=== PATIENT | male | born 1980 | race Caucasian/White ===

== ENCOUNTER 2018-11-05 18:33 | Emergency (ER) | payer OTHER ==
[~2018-11-05] VITALS: Ht 180.3 cm; Wt 104.8 kg
[2018-11-05 18:50] VITALS: BP 147/105
--- NOTE | 2018-11-05 19:37 | NUR ---
PT TO ER BED 5
--- NOTE | 2018-11-05 19:42 | NUR ---
PT PRESENTS TO ED WITH C/O BILATERAL KNEE PAIN. DENIES INJURY OR TRAUMA. NO OBVIOUS DEFORMITY NOTED. PT IS AMBULATORY W OUT ASSIST. PT PLACED INTO BED, PENDING MD SUAREZ.
[2018-11-05] MEDS ORDERED: KETOROLAC 30 MG/ML VIAL IM ONE (20:50)
[2018-11-05] MEDS ORDERED: HYDROcodone/APAP 5/325 MG 1 TAB TAB PO ONE (20:50)
--- NOTE | 2018-11-05 20:55 | NUR ---
RAD AT BEDSIDE
[2018-11-05 21:27] VITALS: BP 144/87
--- NOTE | 2018-11-05 21:27 | NUR ---
Patient discharged with v/s stable. Written and verbal after care instructions given and explained. Patient alert, oriented and verbalized understanding of instructions. Ambulatory with steady gait. All questions addressed prior to discharge. ID band removed. Patient advised to follow up with PMD. Rx of NORCO, KNEE BRACE X 2 given. Patient educated on indication of medication including possible reaction and side effects. Opportunity to ask questions provided and answered.
== END 2018-11-05 21:27 | disposition home or self-care (01) ==
LOC: MED 18:33
DX: M76.9 Unspecified enthesopathy, lower limb, excluding foot (principal); E78.00 Pure hypercholesterolemia, unspecified; Z89.112 Acquired absence of left hand; Z98.890 Other specified postprocedural states
CPT/HCPCS: 73560; 96372; 99283; J1885; Q0092

== ENCOUNTER 2018-11-26 16:30 | Emergency (ER) | payer OTHER ==
[~2018-11-26] VITALS: Ht 180.3 cm; Wt 104.3 kg
[2018-11-26 16:37] VITALS: BP 153/104
[2018-11-26 16:50] VITALS: BP 153/104
--- NOTE | 2018-11-26 16:52 | NUR ---
BIB SELF COUGH X 2 DAYS WITH WHEEZING SOUNDS, RHINORRHEA, AND SNEEZING. + NAUSEA, -V/D. SKIN IS PINK/WARM/DRY; AAOX4 WITH EVEN AND STEADY GAIT; LUNGS SOUNDS COARSE BL; HR EVEN AND REGULAR; PT DENIES ANY FEVER, CP, SOB AT THIS TIME; PATIENT STATES THROAT PAIN OF 4/10 AT THIS TIME; VSS; PATIENT POSITIONED FOR COMFORT; HOB ELEVATED; BEDRAILS UP X2; BED DOWN. ER MD MADE AWARE OF PT STATUS.
[2018-11-26] MEDS ORDERED: ALBUTEROL SULFATE/IPRATROPIU 3 ML SOL IH ONE (16:55)
--- NOTE | 2018-11-26 17:07 | NUR ---
RT AT BEDSIDE.
--- NOTE | 2018-11-26 17:50 | NUR ---
PATIENT STATES HE IS FEELING MUCH BETTER NOW AFTER THE BREATHING TREATMENT.
--- NOTE | 2018-11-26 18:52 | NUR ---
Patient discharged with v/s stable. Written and verbal after care instructions given and explained. Patient alert, oriented and verbalized understanding of instructions. Ambulatory with steady gait. All questions addressed prior to discharge. ID band removed. Patient advised to follow up with PMD. Rx of prednison, albuterol and codeine phosphate/promethazine hydrocloride given. Patient educated on indication of medication including possible reaction and side effects. Opportunity to ask questions provided and answered.
== END 2018-11-26 18:52 | disposition home or self-care (01) ==
LOC: MED 16:30
DX: R05 Cough (principal); R06.7 Sneezing; R09.89 Other specified symptoms and signs involving the circulatory and respiratory systems
CPT/HCPCS: 36415; 71045; 87804; 94640; 99284; J7620

== ENCOUNTER 2019-03-27 09:12 | Emergency (ER) | payer OTHER ==
[~2019-03-27] VITALS: Ht 180.3 cm; Wt 110.2 kg
[2019-03-27 09:17] VITALS: BP 140/83
--- NOTE | 2019-03-27 09:25 | NUR ---
BIB . PT AAO X4 C/O LOW BACK PAIN 10/ S/P PUSHING CAR YESTERDAY. PT STATES UPON AMBULATING TODAY THAT HE FELL DUE TO EXCRUCIATING PAIN AND DENIES HITTING HIS HEAD. STEADY GAIT. ER TO EVALUATE PT.
--- NOTE | 2019-03-27 09:38 | NUR ---
DR FRAGOSO AT BEDSIDE FOR PT EVALUATION
[2019-03-27] MEDS ORDERED: LORazepam 2 MG/ML VIAL IM ONE (09:40)
[2019-03-27] MEDS ORDERED: KETOROLAC 60 MG/2 ML VIAL IM ONE (09:40)
[2019-03-27] MEDS ORDERED: MORPHINE SULFATE 4 MG/ML SYR IM ONE (09:40)
--- NOTE | 2019-03-27 09:46 | NUR ---
IM MEDICATIONS GIVEN ORDERED. PT TOLERATED WELL.
[2019-03-27 10:15] VITALS: BP 125/87
--- NOTE | 2019-03-27 10:15 | NUR ---
Patient discharged with v/s stable. Written and verbal after care instructions given and explained. Patient alert, oriented and verbalized understanding of instructions. Ambulatory with steady gait. All questions addressed prior to discharge. ID band removed. Patient advised to follow up with PMD. Rx of Baclofen, Tramadol Hydrochloride given. Patient educated on indication of medication including possible reaction and side effects. Opportunity to ask questions provided and answered.
== END 2019-03-27 10:15 | disposition home or self-care (01) ==
LOC: MED 09:12
DX: S39.012A Strain of muscle, fascia and tendon of lower back, initial encounter (principal); I10 Essential (primary) hypertension; F17.200 Nicotine dependence, unspecified, uncomplicated; X58.XXXA Exposure to other specified factors, initial encounter; Y93.89 Activity, other specified; Y92.89 Other specified places as the place of occurrence of the external cause; Y99.8 Other external cause status
CPT/HCPCS: 96372; 99283; J1885; J2060; J2270

== ENCOUNTER 2019-03-31 11:12 | Emergency (ER) | payer OTHER ==
[~2019-03-31] VITALS: Ht 180.3 cm; Wt 108.9 kg
[2019-03-31 11:28] VITALS: BP 148/98
--- NOTE | 2019-03-31 11:35 | NUR ---
TO BED 11 WITH STEADY GAIT
--- NOTE | 2019-03-31 11:46 | NUR ---
38 year old male patient brought in by self c/o of lower back pain x5 days. Seen at [facility] 03/27 for pushing a car while at work. He was prescribed Tramadol and Baclofen. Patient states the medication is not working. Patient states pain level is at a 5 when resting, and pain of 10/10 during any movement. Pt is sitting in chair waiting to be evaluated.
[2019-03-31] MEDS ORDERED: LIDOCAINE 1% 500 MG/50 ML VIAL INJ SCH (12:05)
[2019-03-31] MEDS ORDERED: LIDOCAINE MPF 1% - 5 mL VIAL 10 ML ONE (12:26)
[2019-03-31 13:04] VITALS: BP 135/101
--- NOTE | 2019-03-31 13:04 | NUR ---
Patient discharged with BP 135/101. Denied Headache or dizziness at this time. MD made aware. Written and verbal after care instructions given and explained. Patient verbalized understanding. Ambulatory with steady gait. All questions addressed prior to discharge. Advised to follow up with PMD.
== END 2019-03-31 13:04 | disposition home or self-care (01) ==
LOC: MED 11:12
DX: S39.012A Strain of muscle, fascia and tendon of lower back, initial encounter (principal); S29.012A Strain of muscle and tendon of back wall of thorax, initial encounter; Z98.890 Other specified postprocedural states; X58.XXXA Exposure to other specified factors, initial encounter; Y93.89 Activity, other specified; Y92.89 Other specified places as the place of occurrence of the external cause; Y99.8 Other external cause status
CPT/HCPCS: 20552; 99284; J2001